=== PATIENT | female | born 1950 | race Caucasian/White ===

== ENCOUNTER 2024-04-20 16:47 | Emergency (ER) | payer OTHER ==
[~2024-04-20] VITALS: Ht 170.1 cm; Wt 81.6 kg
[~2024-04-20 16:47] MED LIST: CIPROFLOXACIN500 MG PO; TORADOL10 MG PO
[2024-04-20] MEDS ORDERED: Metoclopramide Hydrochloride 10 MG/2 ML AMP IV ONE (17:15)
[2024-04-20] MEDS ORDERED: diphenhydrAMINE hydrochloride 50 MG/ML VIAL IV ONE (17:15)
[2024-04-20] MEDS ORDERED: SODIUM CHLORIDE 0.9% 1,000 ML IV ONE (17:15)
[2024-04-20 17:28] LABS: BASO % 0.2 % (0.0-1.0); EOS % 0.1 % (1.0-4.0); LYMPH # 1.1 10*3/uL (1.3-4.4); LYMPH % 11.5 % (27.0-41.0); MEAN CELL VOLUME 90.3 fl (81.0-99.0); MEAN CORPUSCULAR HGB 29.3 pg (27.0-31.0); MEAN CORPUSCULAR HGB CONC 32.4 g/dl (33.0-37.0); MEAN PLATELET VOLUME 11.6 fl (9.6-12.3); MONO # 0.7 10*3/uL (0.1-1.0); NEUT # 7.6 10*3/uL (2.3-7.9); NEUT % 80.8 % (47.0-73.0); PLATELET COUNT AUTOMATED 174 10*3/uL (130-400); RED BLOOD COUNT 4.54 10*6/uL (4.10-5.10); RED CELL DISTRI WIDTH 13.8 % (0-14.5); WHITE BLOOD COUNT 9.4 10*3/uL (4.8-10.8)
[2024-04-20 17:49] LABS: ALKALINE PHOSPHATASE 76 U/L (46-116); BUN 9 mg/dl (9-23); CHLORIDE 107 mmol/L (98-107); LIPASE 49 U/L (12-53); POTASSIUM 4.1 mmol/L (3.4-5.1); SGPT/ALT 15 U/L (5-49); TOTAL PROTEIN 7.4 gm/dL (6.0-8.0)
[2024-04-20 19:27] LABS: BILIRUBIN Negative (Negative); BLOOD 2+ (Negative); CLARITY Clear (Clear); COLOR Yellow (Yellow); GLUCOSE Negative (Negative); KETONE Negative (Negative); LEUKO ESTERASE 2+ (Negative); NITRITE Negative (Negative); SPECIFIC GRAVITY <= 1.005 (1.001-1.030)
[2024-04-20 19:45] LABS: RBC 41-50 rbc/hpf (0-2)
[2024-04-20] MEDS ORDERED: Ketorolac Tromethamine 30 MG/ML VIAL IV ONE (19:55)
== END 2024-04-20 22:45 | disposition home or self-care (01) ==
LOC: ED 16:47
PROVIDERS: Nurse Practitioner Family
DX: N13.2 Hydronephrosis with renal and ureteral calculous obstruction (principal); R11.2 Nausea with vomiting, unspecified; Z98.890 Other specified postprocedural states

== ENCOUNTER → 2024-05-16 | Outpatient (CLI) | payer OTHER | END | disposition home or self-care (01) | LOC: US 09:30 | PROVIDERS: ATTEND Urology | DX: N13.30 Unspecified hydronephrosis (principal); N20.0 Calculus of kidney; N28.89 Other specified disorders of kidney and ureter; N32.89 Other specified disorders of bladder ==